=== PATIENT | male | born 1995 | race Caucasian/White ===

== ENCOUNTER 2016-12-13 09:01 | Emergency (ER) | payer BC ==
[~2016-12-13] VITALS: Ht 185.4 cm; Wt 136.1 kg
[~2016-12-13 09:01] MED LIST: KEFLEX 250MG.250 MG PO; KEFLEX 500MG.500 MG PO; NOMEDS; TRAMADOL 50MG T50 MG PO; ZITHROMAX Z PA250 MG PO
--- NOTE | 2016-12-13 09:37 | [facility]gent Treatment Center Report ---
History of Present Issue Date/Time Seen by Provider 12/13/16 0918 Visit Reason Pt arrived:Walked Presenting Problem:PT C/O UMBILICUS BEING RED, SWOLLEN, AND DRAINING Location if Accident: Onset of symptoms date/time:/ or onset unknown for:MEDICAL HX UNKNOWN Have you (or family members/close friends) recently traveled outside the [place]? N If Yes, where/when: Have you had exposure to infectious disease within the past month? TB? Other? Specify: Here w/ mom c/o belly button pain, redness, swelling. Tenderness started over one week ago. Redness x 1 week. Adkins drainage x 2-3 days. Denies fever, aches, chills. Peroxide at home not helping. Hasn't taken or tried anything else. Confirms allergy to sulfa drugs but no other known allergies. PCP Dr. Spears. Source patient Exam Limitations no limitations ALLERGIES Coded Allergies: Sulfa (Sulfonamide Antibiotics) (Mild, 12/13/16) Home Medications Reported Medications No Home Medications (NO HOME MEDICATIONS) History Medical History General CAD? No Angina: No FL: No Hypertension? No Hyperlipidemia? No CHF? No DVT? No PE? No COPD? No Asthma? No Anemia? No GERD? No Gastric ulcers? No GI Bleed? No Hernia? No Thyroid Problems? No Hypothyroidism? No CVA? No Seizures? No Diabetes? No Renal Insuffiency? No UTI? No Stones? No BPH? No GB Disease: No Nephritic Syndrome? No Asplenia? No Hepatitis? No Sickle Cell Disease? No Arthritis? No Migraines? No Cataracts? No Glaucoma? No MRSA? No HIV? No TB? No Anxiety? No Depression? No Cancer? No More? No Immunization HX Ped.Immunizations UTD Yes DT/Tetanus 11/10/07 Surgical Hx Previous Surgery?Y ADENOIDS NOSE WIDENED Social History Smoking Hx Smoker: Never Smoker Tobacco: No Alcohol Alcohol: No Review of Systems All Other Systems Reviewed and Negative Constitutional see HPI, denies malaise Gastrointestinal abdominal pain (tenderness RLQ near umbilicus), denies nausea, denies vomiting Skin see HPI Physical Exam Vital Signs Vital Signs Date Time Temp Pulse Resp B/P Pulse O2 O2 Flow FiO2 Ox Delivery Rate 12/13 944 98.6 75 20 135/88 100 12/13 912 98.6 75 20 135/88 100 General Appearance no apparent distress, obese Respiratory Status No: respiratory distress. Cardiovascular no peripheral edema Gastrointestinal normal bowel sounds, soft, no organomegaly, no guarding, no rebound, mild tendnerness RLQ only immediately surrounding umbilicus, umbilicus swollen, red, warm, tender; thin cloudy adkins discharge w/ foul odor fill umbilicus w/ palpation; culture sent Neurologic alert Skin intact, see GI Medical Decision Making LABS/Meds/Orders Pt receiving controlled substance in ED? No Results/Orders Orders Procedure Date/time Status CULTURE, WOUND 12/13 921 Active Consult MD Physician Consult Consult/PCP Dr. Spears, PCP Time Called 929 Reason Pt. Condition (FU surgery or Tory?) Comments Called Dr. Spears's office. Still rounding at hospital. Called hospital, already left. Called office again. they will have him call [facility] once he returns to office. 941: Dr. Choudhury returned call. They rather follow up with patient in their office on Sunday, not surgery. Departure Departure Time of Disposition 944 Disposition DC Home or Self Care(routine) Clinical Impression Primary Impression: Abscess or cellulitis of umbilicus Condition STABLE Referrals Maico Spears MD (Family) Call their office today. Schedule follow up appt for Sunday. Tell them you were seen in [facility] today, I spoke to Dr. Choudhury and they want to see you Sunday for wound follow up and to check on wound culture. Seek treatment immediately for new or worsening symptoms. Patient Instructions DI for Skin Abscess Additional Instructions * Start antibiotic(s) immediately and be sure to take as ordered for the FULL length of time although you should start to see improvement over the next 24-48 hours. * Monitor closely. FU immediately for new or worsening symptoms ( including but not limited to redness, swelling, red streaking, fever, chills). * Warm compresses 15 min 3-4 times a day * never squeeze or pop these on your own. Seek immediate medical attention next time these occur. * Monitor Temp. FU if fever develops Discharge Counseling Counseled pt/family regarding diagnosis, medications/RX, home care, follow up needs Prescriptions Current Visit Scripts Clindamycin Hcl (Clindamycin 300MG) 300 MG PO QID #40 CAP at 0989
[2016-12-13 09:45] VITALS: BP 135/88
[2016-12-13] MEDS ORDERED: CLINDAMYCIN HC300 MG PO (09:45)
== END 2016-12-13 09:50 | disposition home or self-care (01) ==
LOC: UTC 09:01
DX: L03.316 Cellulitis of umbilicus (principal)